=== PATIENT | male | born 1975 | race Caucasian/White ===

== ENCOUNTER 2024-11-11 12:39 | Outpatient (CLI) | payer OTHER ==
--- NOTE | 2024-11-11 16:04 | RADIOLOGY REPORT ---
EXAM: MR MRI UPPER EXTREMITY RIGHT; DATE: 11/11/2024 01:51 PM HISTORY: RIGHT SHOULDER PAIN COMPARISON: None TECHNIQUE: Multiplanar, multisequence MRI imaging was performed. FINDINGS: On coronal images there is a full-thickness tear of the supraspinatus tendon with retraction to the 2 o'clock position relative to the humeral head. There is atrophy of the infraspinatus muscle suggesti ng chronicity. The infraspinatus muscle is also torn without muscle atrophy. High-riding humeral hea d abuts the undersurface of the distal acromion process. On transaxial images the subscapularis tendon is intact. Tendons of the long head of the biceps seen within the bicipital groove The glenoid labrum is intact. The biceps labral anchor is intact. The intra-articular biceps is atr ophied in appearance. On sagittal images the glenohumeral ligaments are intact. 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 Full-thickness tears of the supraspinatus and infraspinatus tendons with retraction to approximate ly 2:00 a.m. position relative to the humeral head 2. Mild focal atrophy of the intra-articular portion of the biceps
== END 2024-11-11 23:59 | disposition home or self-care (01) ==
LOC: MRI 12:39
PROVIDERS: ATTEND Specialist
DX: M75.121 Complete rotator cuff tear or rupture of right shoulder, not specified as traumatic (principal); M25.511 Pain in right shoulder; M75.21 Bicipital tendinitis, right shoulder; M62.511 Muscle wasting and atrophy, not elsewhere classified, right shoulder
CPT/HCPCS: 73221